=== PATIENT | female | born 1995 | race Two or more races ===

== ENCOUNTER 2018-06-18 21:03 | Emergency (ER) | payer MEDICAID ==
[~2018-06-18] VITALS: Ht 165.1 cm; Wt 81.6 kg
[2018-06-18 21:18] VITALS: BP_SYST 131; BP_SYST 154; BP_DIAS 70; BP_DIAS 86
[2018-06-18] MEDS ORDERED: Sodium Chloride 500ML 500 ML IV ONE (21:37)
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
[2018-06-18] MEDS ORDERED: Ketorolac 30mg Inj IV ONE (21:45)
[2018-06-18] MEDS ORDERED: Isovue-300 100ml vial INJ PRN (21:45)
[2018-06-18 22:07] LABS: ANION GAP 11 mmol/L (5-15); BLOOD UREA NITROGEN 9 mg/dL (7-18); CALCIUM 8.9 MG/DL (8.5-10.1); CARBON DIOXIDE 26 MMOL/L (21-32); CHLORIDE 102 MMOL/L (98-107); CREATININE 0.8 MG/DL (0.55-1.30); POTASSIUM 3.5 MMOL/L (3.5-5.1); SODIUM 139 MMOL/L (136-145)
[2018-06-18 22:11] LABS: ALANINE AMINOTRANSFERASE 29 U/L (12-78); ALBUMIN 3.9 G/DL (3.4-5.0); ALKALINE PHOSPHATASE 81 U/L (46-116); ASPARTATE AMINO TRANSFERASE 29 U/L (15-37); BILIRUBIN,TOTAL 0.4 MG/DL (0.2-1.0)
[2018-06-18 22:15] LABS: BASOPHILS % (AUTO) 0.8 % (0.0-2.0); EOSINOPHILS % (AUTO) 0.3 % (0.0-3.0); HEMATOCRIT 41.7 % (37.0-47.0); HEMOGLOBIN 14.1 G/DL (12.0-16.0); LYMPHOCYTES % (AUTO) 11.9 % (20.0-45.0); MEAN CORPUSCULAR VOLUME 92 FL (80-99); MONOCYTES % (AUTO) 3.1 % (1.0-10.0); NEUTROPHILS % (AUTO) 83.8 % (45.0-75.0); PLATELET COUNT 410 K/UL (150-450); RED BLOOD COUNT 4.54 M/UL (4.20-5.40); RED CELL DISTRIBUTION WIDTH 11.4 % (11.6-14.8); WHITE BLOOD COUNT 15.1 K/UL (4.8-10.8)
[2018-06-18] MEDS ORDERED: ROBAXIN-750750 MG PO (23:35)
[2018-06-18] MEDS ORDERED: IBUPROFEN600 MG ORAL (23:35)
[2018-06-18 23:52] VITALS: BP 131/70
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
== END 2018-06-18 23:44 | disposition home or self-care (01) ==
LOC: EMR 21:47
DX: S30.1XXA Contusion of abdominal wall, initial encounter (principal); V43.62XA Car passenger injured in collision with other type car in traffic accident, initial encounter; Y92.488 Other paved roadways as the place of occurrence of the external cause; M25.532 Pain in left wrist
CPT/HCPCS: 36415; 73110; 74177; 80053; 81025; 83690; 85025; 96374; 99284; J1885; J7040; Q9967; 29125